=== PATIENT | female | born 1990 | race Caucasian/White ===

== ENCOUNTER 2023-05-26 11:10 | Outpatient (REF) | payer OTHER, SELFPAY ==
[2023-05-26 19:15] LABS: Abs Immature Grans 0.02 10^3/uL (0.0-0.06); Absolute Basophil Count 0.08 10^3/uL (0.0-0.2); Absolute Eosinophil Count 0.17 10^3/uL (0.0-0.7); Absolute Lymphocyte Count 1.73 10^3/uL (1.2-3.4); Absolute Monocyte Count 0.52 10^3/uL (0.1-0.8); Absolute Neutrophil Count 5.12 10^3/uL (1.2-6.7); Eosinophils % 2.2; HCT 38.9 % (36.0-46.0); HGB 12.9 g/dL (11.2-15.7); Immature Grans % 0.3; Lymphocytes % 22.6; MCH 28.4 pg (27.0-33.0); MCHC 33.2 % (32.0-36.0); MCV 86 fL (80-95); MPV 12.4 fL (8.0-11.0); Monocytes % 6.8; Neutrophils % 67.1; Platelet Count 240 10^3/uL (130-400); RBC 4.55 10^6/uL (3.93-5.22); RDW 11.7 % (11.7-14.6); RDW-SD 36.5 fL; WBC 7.64 10^3/uL (4.4-10.8)
[2023-05-26 19:43] LABS: Hemoglobin A1C 5.6 % (<5.7)
[2023-05-26 19:53] LABS: ALT 26 U/L (14-59); AST 16 U/L (15-37); Albumin 3.7 g/dL (3.4-5.0); Alkaline Phosphatase 66 U/L (46-116); BUN 13 mg/dL (7-18); Bilirubin, Total 0.5 mg/dL (0.2-1.0); CREATININE 0.7 mg/dL (0.55-1.02); Calcium 8.8 mg/dL (8.5-10.1); Calculated LDL 92 mg/dL (<100); Chloride 107 mmol/L (98-107); Cholesterol 153 mg/dL (<200); Estimated GFR 116.31 (mL/min/1.73m2); Glucose 94 mg/dL (74-106); HDL Cholesterol 47 mg/dL (40-60); Potassium 4.2 mmol/L (3.5-5.1); Sodium 140 mmol/L (136-145); TSH (W/Ref FT4) 2.18 uIU/mL (0.36-3.74); Total Protein 6.8 g/dL (6.4-8.2); Triglyceride 71 mg/dL (<150)
== END 2023-05-26 11:11 | disposition home or self-care (01) ==
LOC: NCHCN 11:10
PROVIDERS: PCP Physician Assistant; Visit Provider Physician Assistant
DX: Z13.1 Encounter for screening for diabetes mellitus (principal); Z13.220 Encounter for screening for lipoid disorders
CPT/HCPCS: 80053; 80061; 83036; 84443; 85025

== ENCOUNTER 2023-12-14 12:24 | Outpatient (REF) | payer OTHER, SELFPAY ==
[2023-12-14 19:32] LABS: TSH (W/Ref FT4) 1.87 uIU/mL (0.36-3.74)
== END 2023-12-14 12:25 | disposition home or self-care (01) ==
LOC: NCHCN 12:24
PROVIDERS: PCP Physician Assistant; Visit Provider Physician Assistant
DX: R42 Dizziness and giddiness (principal)
CPT/HCPCS: 84443